=== PATIENT | female | born 1975 | race Two or more races ===

== ENCOUNTER 2024-10-23 09:47 | Outpatient (CLI) | payer MEDICAID ==
--- NOTE | 2024-10-23 12:11 | VASCULAR REPORT ---
Bilateral lower extremity venous duplex Clinical History: Varicose veins Comparison: None Technique: Duplex Doppler evaluation of the deep and superficial venous systems of both lower extremities from t he common femoral veins to the popliteal veins including color Doppler and spectral/pulsed waveform a nalysis was performed. Findings: RIGHT SIDE: The common femoral vein demonstrates appropriate compressibility and waveform variability. There is compressibility/patency of the great saphenous vein at the proximal thigh. The femoral vein demonstrates appropriate compressibility and waveform variability. The deep femoral vein demonstrates appropriate compressibility and waveform variability. The popliteal vein demonstrates appropriate compressibility and waveform variability. There is normal compressibility at the tibioperoneal trunk. Reflux is present in the right popliteal vein and throughout the right greater saphenous vein. Right saphenofemoral junction diameter measures 0.9 cm. LEFT SIDE: The common femoral vein demonstrates appropriate compressibility and waveform variability. There is compressibility/patency of the great saphenous vein at the proximal thigh. The femoral vein demonstrates appropriate compressibility and waveform variability. The deep femoral vein demonstrates appropriate compressibility and waveform variability. The popliteal vein demonstrates appropriate compressibility and waveform variability. There is normal compressibility at the tibioperoneal trunk. Reflux is noted throughout the left greater saphenous vein system. Left saphenofemoral junction diame ter is 0.8 cm. Impression: No right or left femoropopliteal venous thrombosis. Positive venous reflux is present in the right popliteal vein and throughout the right greater saphen ous vein system. Positive venous reflux is present throughout the left greater saphenous vein system. No incompetent perforators noted bilateral.
== END 2024-10-23 23:59 | disposition home or self-care (01) ==
LOC: VAS 09:47
DX: I87.2 Venous insufficiency (chronic) (peripheral) (principal); I83.893 Varicose veins of bilateral lower extremities with other complications
CPT/HCPCS: 93970